=== PATIENT | female | born 1950 | race Caucasian/White ===

== ENCOUNTER 2019-10-04 14:21 | Observation (INO) | payer BC ==
--- OUTSIDE RECORDS SUMMARY | 2019-10-04 14:43 | XMS REPORT ---
:1950 [facility] [address] [place] [id number] Care Team Providers Name Role Phone Unavailable Unavailable Unavailable Problems This patient has no known problems. Allergies, Adverse Reactions, Alerts This patient has no known allergies or adverse reactions. Medications This patient has no known medications.
[2019-10-04 15:03] VITALS: BMI 26.2
[2019-10-04] MEDS ORDERED: ALBUTEROL 2.5 MG/3 ML NEB SOL IH PRN (15:23)
[2019-10-04] MEDS ORDERED: ONDANSETRON 4 MG/2 ML VIAL IV PRN (16:00)
[2019-10-04] MEDS ORDERED: POLYETHYL GLY 3350 17 GM/DOSE PO PRN (16:00)
[2019-10-04] MEDS ORDERED: LOPERAMIDE HCL 2 MG CAPSULE PO PRN (16:00)
[2019-10-04] MEDS ORDERED: NACHLORIDE 0.45% 1,000 ML IV SCH (16:00)
[2019-10-04] MEDS ORDERED: ONDANSETRON 4 MG (ODT) TAB PO PRN (16:00)
[2019-10-04] MEDS ORDERED: DIPHENHYDRAMINE 25 MG TAB/CAP PO PRN (16:00)
[2019-10-04] MEDS ORDERED: ACETAMINOPHEN 325 MG TABLET PO PRN (16:00)
[2019-10-04] MEDS: levoFLOXacin 500 MG TAB PO SCH (16:13)
[2019-10-04 16:40] LABS: Absolute Lymphocytes (CBC) 1.1 K/uL (0.7-4.9); Basophils % 0.5 % (0-1.3); Hematocrit 41.2 % (36.0-45.0); Lymphocytes % 20.3 % (15.3-44.8); MPV 8.3 fL (7.6-11.3); Protime INR 1.05
[2019-10-04 16:57] LABS: ALT/SGPT 45 U/L (12-78); AST/SGOT 29 U/L (15-37); Albumin 3.4 g/dL (3.4-5.0); Alkaline Phosphatase 89 U/L (45-117); BUN Blood Urea Nitrogen 13 mg/dL (7-18); Bicarbonate 35 mmol/L (21-32); Bilirubin Direct < 0.1 mg/dL (0-0.2); Bilirubin Total 0.3 mg/dL (0.2-1.0); Glucose Level 98 mg/dL (74-106); Potassium 3.4 mmol/L (3.5-5.1); Protein, Total 7.1 g/dL (6.4-8.2); Sodium Level 135 mmol/L (136-145)
--- NOTE | 2019-10-04 17:05 | RAD REPORT ---
EXAM DESCRIPTION: RAD - Chest Pa And Lat (2 Views) - 10/04/2019 4:46 pm CLINICAL HISTORY: hypoxia, copd, bronchitis, fever Chest pain. COMPARISON: CHEST SINGLE VIEW dated 09/04/2011; CHEST SINGLE VIEW dated 01/13/2010; CHEST PA AND LAT 2 VIEW dated 02/04/2003 FINDINGS: The lungs are mildly emphysematous but clear. The heart is upper limit of normal in size. No displaced fractures. IMPRESSION: Mild COPD.
[2019-10-04] MEDS: METHYLPREDNISOLONE 40 MG INJ IV SCH (17:07)
[2019-10-04 17:20] LABS: Magnesium 1.8 mg/dL (1.8-2.4); Phosphorus 2.7 mg/dL (2.5-4.9); Thyroid Stimulating Hormone 1.37 uIU/mL (0.360-3.740)
[2019-10-04] MEDS ORDERED: POTASSIUM CL SA 10 MEQ TAB PO ONE (18:00)
[2019-10-04] MEDS ORDERED: MAGNESIUM SULFATE 1 gm IVPB 1 GM/100 ML BAG IV ONE (18:00)
[2019-10-04] MEDS: LEVALBUTEROL 1.25 MG/3 ML NEB IH SCH (19:45)
[2019-10-04] MEDS: IPRATROPIUM BROM 0.5MG/2.5ML IH SCH (19:45)
[2019-10-04] MEDS ORDERED: PROPRANOLOL HCL 10 MG TAB PO SCH (21:00)
[2019-10-04] MEDS ORDERED: MAGNESIUM OXIDE PO SCH (21:00)
[2019-10-04] MEDS: OSELTAMIVIR 75 MG CAP PO SCH (21:53)
[2019-10-04] MEDS: ENOXAPARIN 80 MG/0.8 ML SQ SCH (21:53)
[2019-10-04 22:40] LABS: Urine Appearance CLEAR; Urine Bilirubin NEGATIVE (NEG); Urine Blood NEGATIVE (NEG); Urine Color YELLOW; Urine Glucose NEGATIVE (NEG); Urine Protein NEGATIVE (NEG); Urine Specific Gravity 1.015 (1.005-1.030); Urine Urobilinogen 0.2 mg/dL (0.2-1.0); Urine pH 6.5 (5.0-7.0)
[2019-10-04 22:56] LABS: Urine Bacteria 20-50 /HPF (<20)
[2019-10-04 22:57] LABS: Urine Amorphous Sediment 1+ /HPF (NONE SEEN); Urine Mucus 2+ /HPF (NONE SEEN)
[2019-10-05] MEDS ORDERED: POTASSIUM CL SA 10 MEQ TAB PO ONE (00:34)
[2019-10-05] MEDS: METHYLPREDNISOLONE 40 MG INJ IV SCH ×3 (00:46→12:19)
[2019-10-05] MEDS: LEVALBUTEROL 1.25 MG/3 ML NEB IH SCH ×3 (01:35→14:25)
[2019-10-05] MEDS: IPRATROPIUM BROM 0.5MG/2.5ML IH SCH ×3 (01:35→14:25)
[2019-10-05 05:52] LABS: Absolute Lymphocytes (CBC) 0.7 K/uL (0.7-4.9); Basophils % 0.6 % (0-1.3); Hematocrit 42.6 % (36.0-45.0); Lymphocytes % 20.5 % (15.3-44.8); MPV 8.4 fL (7.6-11.3); RBC Red Blood Cell Count 4.83 M/uL (3.86-4.86)
[2019-10-05 06:13] LABS: Magnesium 2.1 mg/dL (1.8-2.4); Potassium 4.6 mmol/L (3.5-5.1)
--- NOTE | 2019-10-05 06:58 | RAD REPORT ---
EXAM DESCRIPTION: NM - Vent Perfusion VQ Scan - 10/05/2019 6:22 am CLINICAL HISTORY: r/o pe Chest pain, shortness of breath COMPARISON: BREAST/AXILLA, LIMITED dated 04/07/2015; Chest Pa And Lat (2 Views) dated 10/04/2019 TECHNIQUE: 20.4mCi Xe-133 gas inhaled and 7.4mCi Tc-MAA IV. Planar ventilation scan was performed in posterior projection after Xe-133 gas inhalation (wash-in, e quilibrium, and wash-out phases) followed by perfusion scan with Tc-MAA IV in multiple projections. Examination is correlated with recent chest radiograph. FINDINGS: Ventilation to the right upper lobe with mildly heterogenous. Mild to moderate air trappin g is present. No mismatched segmental perfusion defect. IMPRESSION: Low probability of acute pulmonary embolism. COPD physiology.
[2019-10-05] MEDS ORDERED: INDAPAMIDE PO SCH (09:00)
[2019-10-05] MEDS ORDERED: ENOXAPARIN 40 MG/0.4 ML SQ SCH (09:00)
[2019-10-05] MEDS ORDERED: HOME MED 1 EA UNK (Losartan Potassium [Cozaar] 1 TAB) PO SCH (09:00)
[2019-10-05] MEDS ORDERED: HOME MED 1 EA UNK (Duloxetine Hcl [Cymbalta] 1 TAB) PO SCH (09:00)
[2019-10-05] MEDS: OSELTAMIVIR 75 MG CAP PO SCH (09:02)
[2019-10-05] MEDS: levoFLOXacin 500 MG TAB PO SCH (09:02)
[2019-10-05] MEDS: ENOXAPARIN 80 MG/0.8 ML SQ SCH (09:02)
--- NOTE | 2019-10-05 10:01 | EKG ---
Test Date: 2019-10-04 Test Time: 15:53:40 Production Sanitizer: EVER MEASUREMENT RESULTS: Intervals: Rate: 76 IA: 164 QRSD: 96 QT: 380 QTc: 427 [place]: P: 79 IA: 164 QRS: 94 T: 82 INTERPRETIVE STATEMENTS: Normal sinus rhythm Right atrial enlargement Incomplete right bundle branch block Possible Right ventricular hypertrophy Abnormal ECG Compared to ECG 11/07/2014 13:29:47 No significant changes Electronically Signed On 10-05-19 10:00:24 PEN TENDER by Tulio Toro
[2019-10-05 12:16] VITALS: BP 124/58; TEMP 97
--- NOTE | 2019-10-05 14:05 | RAD REPORT ---
EXAM DESCRIPTION: US - Extrem Venous W Compress Caleb - 10/05/2019 1:58 pm CLINICAL HISTORY: rule out DVT Bilateral leg edema and swelling. COMPARISON: No comparisons TECHNIQUE: Real-time sonographic interrogation of the left and right lower extremity deep venous sys tems was performed. FINDINGS: Normal compressibility, flow augmentation, phasic flow and spontaneous flow is identified in both the left and right lower extremity deep venous systems. IMPRESSION: No sonographic evidence of left or right lower extremity deep venous thrombosis.
[2019-10-05 15:18] VITALS: O2SAT 95
--- NOTE | 2019-10-05 18:26 | P.DS ---
Admission Date: 10/04/19 Discharge Date: 10/05/19 Disposition: ROUTINE DISCHARGE Discharge Condition: [facility] Hospital Course: HARMAN APARICIO CAME WITH FEVER, WEAKNESS, CHEST TIGHTNESS AND HYPOXIA AT OFFICE. SHE WAS FOUND TO HAVE FLU. BECAUSE OF HYPOXIA DOWN TO89% I ADMITTED HER. SHE IS A SMOKER WITH COPD AND NOW SHE SAYS SHE QUIT FROM YESTERDAY. SHE HAS IMPROVED SIGNIFICANTLY ON TAMILFU, NEBS AND ABX. SHE IS STABLE FOR DISCHARGE AND FU IN 10 DAYS. Vital Signs/Physical Exam: Temp Pulse Resp BP Pulse Ox 97 F 72 18 124/58 L 92 10/05/19 12:00 10/05/19 12:00 10/05/19 12:00 10/05/19 12:00 10/05/19 12:00 Laboratory Data at Discharge: WBC 3.5 K/uL (4.3-10.9) L D 10/05/19 05:10 Hgb 14.5 g/dL (12.0-15.0) 10/05/19 05:10 Hct 42.6 % (36.0-45.0) 10/05/19 05:10 Plt Count 202 K/uL (152-406) 10/05/19 05:10 PT 12.4 SECONDS (9.5-12.5) 10/04/19 16:15 INR 1.05 10/04/19 16:15 APTT 29.2 SECONDS (24.3-36.9) 10/04/19 16:15 Sodium 137 mmol/L (136-145) 10/05/19 05:10 Potassium 4.6 mmol/L (3.5-5.1) 10/05/19 05:10 BUN 12 mg/dL (7-18) 10/05/19 05:10 Creatinine 0.74 mg/dL (0.55-1.3) 10/05/19 05:10 Glucose 122 mg/dL (74-106) H 10/05/19 05:10 Phosphorus 2.7 mg/dL (2.5-4.9) 10/04/19 16:15 Magnesium 2.1 mg/dL (1.8-2.4) 10/05/19 05:10 Total Bilirubin 0.3 mg/dL (0.2-1.0) 10/04/19 16:15 AST 29 U/L (15-37) 10/04/19 16:15 ALT 45 U/L (12-78) 10/04/19 16:15 Alkaline Phosphatase 89 U/L (45-117) 10/04/19 16:15 Home Medications: Duloxetine HCl [Cymbalta] 1 tab PO DAILY 10/04/19 Famotidine [Pepcid*] 1 tab PO BID 10/04/19 Indapamide [Lozol] 1 tab PO DAILY 10/04/19 Losartan Potassium [Cozaar] 1 tab PO DAILY 10/04/19 Magnesium Oxide [Mag 0X*] 1 tab PO BID 10/04/19 Pantoprazole [Protonix Tab*] 1 tab PO DAILY 10/04/19 Propranolol [Inderal*] 1 tab PO BID 10/04/19 Followup: Dave Baer MD [Primary Care Provider] - 1 Week (Call to schedule an appointment)
== END 2019-10-05 15:42 | disposition home or self-care (01) ==
LOC: 4TH 14:39
PROVIDERS: ADMIT Internal Medicine; ATTEND Internal Medicine
DX: J11.1 Influenza due to unidentified influenza virus with other respiratory manifestations (principal); R09.02 Hypoxemia; J44.1 Chronic obstructive pulmonary disease with (acute) exacerbation; Z88.0 Allergy status to penicillin; Z88.2 Allergy status to sulfonamides; I10 Essential (primary) hypertension
CPT/HCPCS: 93005; 87088; 85025 ×2; 81001; 87086; 80048 ×2; 36415; 83735 ×2; 84100; 84132; 85610; 85379; 80076; 83605; 85730; 84443; 82607; 84145; 82306; 87804 ×2; 71046; 93970; 94640 ×4; 78582; G0379; J3475; J1650 ×2; J2405; J2920 ×4; A9558; A9540; G0378 ×3